=== PATIENT | male | born 1990 | race Caucasian/White ===

== ENCOUNTER 2018-02-19 21:05 | Emergency (ER) | payer BC ==
[~2018-02-19] VITALS: Ht 190.5 cm; Wt 104.5 kg
[2018-02-19 22:29] LABS: BASO % 0.3 % (0.0-2.0); EOS % 0.1 % (0-4.0); GRAN # 10.4 (1.4-6.5); GRAN % 87.7 % (42.2-75.2); HEMATOCRIT 39.7 % (42.0-52.0); HEMOGLOBIN 13.8 g/dl (13.5-18.0); LYMPH # 0.9 (1.2-3.4); LYMPH % 7.7 % (20.0-51.0); MEAN CELL VOLUME 90 fl (80.0-100.0); MEAN CORPUSCULAR HEMOGLOBIN 31 pg (27.0-31.0); MEAN CORPUSCULAR HGB CONC 35 g/dl (33.0-37.0); MEAN PLATELET VOLUME 9.5 fl (7.4-10.4); MONO # 0.5 (0.1-0.6); MONO % 3.9 % (1.7-9.3); PLATELET COUNT 193 K/mm3 (130-400); RED BLOOD COUNT 4.42 M/mm3 (4.20-5.60); REDCELL DISTRIBUTION WIDTH-CV 12.1 % (11.5-14.5)
[2018-02-19 22:42] LABS: BILIRUBIN,TOTAL 0.9 mg/dL (0.0-1.0); CALCIUM 8.7 mg/dL (8.4-10.2); CREATININE, serum 0.87 mg/dL (0.66-1.25); TOTAL PROTEIN 7.7 gm/dL (6.4-8.2)
[2018-02-19 22:53] LABS: C-REACTIVE PROTEIN 13.7 mg/dL (0.0-0.9)
[2018-02-19 23:03] VITALS: BP 102/54; PULSE 81; TEMP 98.3
[2018-02-21 08:45] LABS: ROCKY MOUNTAIN SPOT FEVER-ABS 1:16 (<1:16)
== END 2018-02-19 23:24 | disposition home or self-care (01) ==
LOC: COL.ER 21:05
PROVIDERS: Nurse Practitioner
DX: R50.9 Fever, unspecified (principal); R19.7 Diarrhea, unspecified; F17.220 Nicotine dependence, chewing tobacco, uncomplicated
CPT/HCPCS: J7030